=== PATIENT | male | born 1945 | race African-American/Black ===

== ENCOUNTER 2022-05-23 12:54 | Inpatient (IN) | payer MEDICARE, OTHER ==
[~2022-05-23] VITALS: Ht 177.8 cm; Wt 69.9 kg
--- NOTE | 2022-05-23 13:09 | NUR ---
"Plan to admit" per Dr Gasper Healy. ER registration staff Elvin were notified.
--- NOTE | 2022-05-23 13:09 | NUR ---
Chetan comer in EDM - 05/23/22 at 2000 by NISHANT Plan to admit" per Dr Gasper Healy. ER registartion staff Elvin notified
[2022-05-23 13:23] LABS: HEMATOCRIT 36.4 % (36.7-47.1); MEAN CORPUSCULAR HEMOGLOBIN 32.8 uug (23.8-33.4); MEAN CORPUSCULAR VOLUME 96.6 fL (73.0-96.2); PLATELET COUNT (AUTO) 234 K/uL (152-348)
[2022-05-23 13:35] LABS: CARBON DIOXIDE 26 mmol/L (21-32); CHLORIDE 105 mmol/L (98-107); CREATININE 1.3 mg/dL (0.6-1.3); GLUCOSE 140 mg/dL (74-106); POTASSIUM 3.8 mmol/L (3.5-5.1); UREA NITROGEN, BLOOD 14 mg/dL (7-18)
[2022-05-23 13:48] LABS: ALANINE AMINOTRANSFERASE 22 U/L (16-63); ALKALINE PHOSPHATASE 96 U/L (50-136); ASPARTATE AMINOTRANSFERASE 26 U/L (15-37); BILIRUBIN,DIRECT 0.3 mg/dL (0.0-0.2); BILIRUBIN,TOTAL 0.6 mg/dL (0.2-1.0); TOTAL PROTEIN, SERUM 8.2 g/dL (6.4-8.2)
--- NOTE | 2022-05-23 14:13 | NUR ---
Chetan comer in ED - 05/23/22 at 2001 by NISHANT Swabs for COVID antigen & PCR, RSV and influenza virus were colected and handed to lab staff June.
--- NOTE | 2022-05-23 14:13 | NUR ---
Swabs for COVID antigen & PCR, RSV and influenza virus were collected and handed to lab staff June.
[2022-05-23] MEDS ORDERED: AZITHROMYCIN IV 500 MG in IV DEXTROSE 5% 250 ML IV ONE (14:15)
[2022-05-23] MEDS ORDERED: CEFTRIAXONE 1 G in IV DEXTROSE 5% 50 ML IV ONE (14:15)
[2022-05-23] MEDS ORDERED: ASPIRIN 81 MG TAB.CHEW PO ONE (14:30)
[2022-05-23] MEDS ORDERED: IV NORMAL SALINE 1000 ML BAG IV ONE (14:30)
--- NOTE | 2022-05-23 14:32 | NUR ---
Pt and pt do not remember any of Pt's meds and unable to get bottles/list at this time.
[2022-05-23] MEDS ORDERED: AZITHROMYCIN 500MG/ D5W 250ML IVPB **ER PYXIS ONLY IV ONE (14:45)
[2022-05-23] MEDS ORDERED: CEFTRIAXONE /D5W 50ML IVPB **ER PYXIS IV ONE (14:45)
[2022-05-23] MEDS ORDERED: ASPIRIN 81 MG TAB.CHEW ONE (15:15)
--- NOTE | 2022-05-23 16:44 | NUR ---
Patient c/o shortness of breath again, MD notified.
[2022-05-23] MEDS ORDERED: ALBUTEROL SULFATE 2.5 MG/3 ML NEBU ONE (16:50)
[2022-05-23] MEDS ORDERED: IPRATROPIUM BROMIDE 0.5 MG/2.5 ML NEBU ONE (16:51)
--- NOTE | 2022-05-23 16:55 | NUR ---
Nebulization treatment in progress. Resp therapist Taras is at bedside.
[2022-05-23] MEDS ORDERED: ALBUTEROL SULFATE 2.5 MG/3 ML NEBU NEB ONE (17:00)
[2022-05-23] MEDS ORDERED: IPRATROPIUM BROMIDE 0.5 MG/2.5 ML NEBU NEB ONE (17:00)
--- NOTE | 2022-05-23 19:31 | NUR ---
Nursing SBAR given to PEYMAN Wolf, patient is for admission for telemetry vs ICU depending if patient can tolerate nasal cannula instead.
[2022-05-23] MEDS ORDERED: ACETAMINOPHEN 325 MG TABLET PO PRN (20:00)
[2022-05-23] MEDS ORDERED: MORPHINE SULFATE 2 MG/1 ML DISP.SYRIN IV PRN (20:00)
[2022-05-23] MEDS ORDERED: LEVALBUTEROL HCL NEB 0.63 MG/3 ML NEBU NEB PRN (20:30)
[2022-05-23] MEDS: DOCUSATE SODIUM 100 MG CAPSULE PO SCH (21:00)
[2022-05-23] MEDS: ENOXAPARIN SODIUM 60 MG/0.6 ML DISP.SYRIN SQ SCH (21:00)
[2022-05-23] MEDS ORDERED: ENOXAPARIN SODIUM 60 MG/0.6 ML DISP.SYRIN SQ ONE (22:49)
[2022-05-24] MEDS: AMIODARONE HCL IV 450 MG in IV DEXTROSE 5% 250 ML IV PRN (03:23)
[2022-05-24 05:26] LABS: ABG BASE EXCESS -2.3 mmol/L; ABG HCO3 19.9 mmol/L; ABG PCO2 27.7 mmHg (35.0-45.0); ABG PH 7.475 (7.350-7.450); ABG PO2 56.4 mmHg (75.0-100.0); ABG SITE LEFT RADIAL; ABG TOTAL HEMOGLOBIN 13.2 G/dL (13.5-18.0); COHb 0.4 % (0.5-1.5); MetHb 0.2 % (0.0-1.5); O2Hb 91.3 % (94.0-97.0); VENT MODE Nasal Cannula
--- NOTE | 2022-05-24 05:50 | NUR ---
Patient was placed back on BIPAP due to low oxygen and high co2.after been on 2L nasal cannula by his request. continue to monior
[2022-05-24 07:29] LABS: HEMATOCRIT 36.9 % (36.7-47.1); MEAN CORPUSCULAR HEMOGLOBIN 33.3 uug (23.8-33.4); PLATELET COUNT (AUTO) 276 K/uL (152-348)
--- NOTE | 2022-05-24 07:30 | NUR ---
Received the patient from the off-going nurse. Patient A/O X 4, denies pain. Received the patient on the BiPAP, observed with activity intolerance. Patient has Amio gtt infusing to his (RT) hand, site WNL. Patient observed with tachycardia/A-Fib/RVR on the bedside monitor. Patient is admitted to the ICU, stable on the stretcher in the lowest positionc, call bhakta within reach asnd awaiting assigned bed.
[2022-05-24 07:55] LABS: ALANINE AMINOTRANSFERASE 27 U/L (16-63); ALKALINE PHOSPHATASE 104 U/L (50-136); ASPARTATE AMINOTRANSFERASE 28 U/L (15-37); BILIRUBIN,TOTAL 0.8 mg/dL (0.2-1.0); CARBON DIOXIDE 24 mmol/L (21-32); CHLORIDE 104 mmol/L (98-107); CHOLESTEROL 155 mg/dL (<200); CREATININE 1.8 mg/dL (0.6-1.3); GLUCOSE 209 mg/dL (74-106); HDL CHOLESTEROL 45 mg/dL (40-60); MAGNESIUM 1.7 mg/dL (1.8-2.4); PHOSPHOROUS 3.5 mg/dL (2.5-4.9); POTASSIUM 4.5 mmol/L (3.5-5.1); TOTAL PROTEIN, SERUM 8.3 g/dL (6.4-8.2); TRIGLYCERIDES 72 MG/DL (30-150); UREA NITROGEN, BLOOD 18 mg/dL (7-18)
[2022-05-24] MEDS: PANTOPRAZOLE SODIUM 40 MG TABLET.DR PO SCH (08:00)
[2022-05-24] MEDS ORDERED: ENOXAPARIN SODIUM 60 MG/0.6 ML DISP.SYRIN SQ ONE (08:03)
[2022-05-24] MEDS ORDERED: PANTOPRAZOLE SODIUM 40 MG VIAL ONE (08:03)
[2022-05-24 08:05] LABS: THYROID STIMULATING HORMONE 1.372 mIU/mL (0.358-3.740)
[2022-05-24] MEDS: ENOXAPARIN SODIUM 60 MG/0.6 ML DISP.SYRIN SQ SCH (08:12)
--- NOTE | 2022-05-24 08:30 | NUR ---
Patient seen by the RT and BiPAP removed and patient placed on O2 @ 4LPM via N/C. Patient tolerating oxygen delivery method. Call received from the lab for critical repeat Troponin level, call placed to [facility] answering service for Dr. Hoover; admitting MD to inform him of the critical labs. Patient medicated as per standing orders (see eMAR). Patient continues to experience severe activity intolerance. Patient continue on monitoring. Patient is stable on the stretcher in the lowest position, call bhakta within reach and awaiting assigned bed.
[2022-05-24] MEDS ORDERED: FUROSEMIDE 40 MG/4 ML VIAL IV SCH (09:00)
[2022-05-24] MEDS ORDERED: MAGNESIUM OXIDE 400 MG TABLET PO ONE (09:15)
[2022-05-24] MEDS ORDERED: ASPIRIN 81 MG TAB.CHEW ONE (10:29)
[2022-05-24] MEDS ORDERED: MAGNESIUM OXIDE 400 MG TABLET ONE (10:30)
[2022-05-24] MEDS ORDERED: FUROSEMIDE 40 MG/4 ML VIAL ONE (10:30)
[2022-05-24] MEDS: ASPIRIN 81 MG TAB.CHEW PO SCH (10:30)
--- NOTE | 2022-05-24 10:30 | NUR ---
Patient remains the same with no decline in his status. Patient seen and evaluated by the Alarm Field Technician. Patient has new medications ordered and administered(see eMAR). Echo ordered and compleed at the bedside. Patient continues to experience severe activity intolerance. Patient continue on monitoring. Patient is stable on the stretcher in the lowest position, call bhakta within reach and awaiting assigned bed.
[2022-05-24] MEDS ORDERED: ONDANSETRON 4 MG/2 ML VIAL ONE (12:53)
[2022-05-24] MEDS: ONDANSETRON 4 MG/2 ML VIAL IV PRN (12:59)
--- NOTE | 2022-05-24 13:09 | NUR ---
Patient remains the shubham with no decline in his status. Patient seen and evaluated by the Street Light Servicer. Patient C/O nausea, medicated as per PRN order (see eMAR). Patient continues to experience severe activity intolerance. Patient continue on monitoring. Patient is stable on the stretcher in the lowest position, call bhakta within reach and awaiting assigned bed.
[2022-05-24] MEDS ORDERED: CARV12.52 PO (14:19)
[2022-05-24] MEDS ORDERED: SPIR25TA6 PO (14:25)
[2022-05-24] MEDS ORDERED: ALIR150P3 SQ (14:25)
[2022-05-24] MEDS ORDERED: MONT10TA33 PO (14:25)
[2022-05-24] MEDS ORDERED: CLOP75TA15 PO (14:25)
[2022-05-24] MEDS ORDERED: FLUT1BLS6 IH (14:25)
--- NOTE | 2022-05-24 14:33 | NUR ---
Patient remains the same, tolerating oxygen delivery method, continues to experience severe activity intolerance. Patient transported on the threat monitoring analyst, safely via stretcher to and from DC. Patient continue on monitoring. Patient is stable on the stretcher in the lowest position, call bhakta within reach and awaiting assigned bed.
[2022-05-24] MEDS ORDERED: FEBU40TA PO (14:36)
[2022-05-24] MEDS ORDERED: PLEC3TAB2 PO (14:36)
[2022-05-24] MEDS ORDERED: FURO-151 PO (14:36)
[2022-05-24] MEDS ORDERED: MAGN400T8 PO (14:36)
[2022-05-24] MEDS ORDERED: APIX5TAB PO (14:36)
[2022-05-24] MEDS ORDERED: MEGE40TA7 PO (14:36)
[2022-05-24] MEDS ORDERED: DEXL60CA3 PO (14:36)
[2022-05-24] MEDS ORDERED: CEFTRIAXONE /D5W 50ML IVPB **ER PYXIS IV ONE (14:54)
[2022-05-24] MEDS ORDERED: AZITHROMYCIN IV 500 MG in IV DEXTROSE 5% 250 ML IV SCH (15:00)
[2022-05-24] MEDS: CEFTRIAXONE 1 G in IV DEXTROSE 5% 50 ML IV SCH (15:45)
--- NOTE | 2022-05-24 17:00 | NUR ---
Patient remains the same with no decline in his status. #20G angio-cath inserted to (RT) A/C and IVABT X 2 to be infused. Condom cath applied and secured to (RT) thigh, due to activity intolerance to urinate standing up. Patient stable on the stretcher, in the lowest position, call bhakta within reach and awaiting assigned bed.
[2022-05-24] MEDS: DOXYCYCLINE HYCLATE IV 100 MG in IV DEXTROSE 5% 100 ML IV SCH (17:09)
--- NOTE | 2022-05-24 18:24 | NUR ---
received report from ER nurse. patient will be going to [facility].
--- NOTE | 2022-05-24 18:30 | NUR ---
Patient remains the same with no decline in his status, denies pain/discomfort. Patient has an assigned bed, verbal report via the telephone given to Catherine MORLEY, the assigned nurse. Patient transported safely via stretcher on the quality assurance monitor final to his assigned bed. Patient transferred safely onto his assigned bed, left stable with Catherine MORLEY at the bedside. BiPAP is at the bedside.
[2022-05-24 19:13] VITALS: BP 110/81
[2022-05-24] MEDS: FUROSEMIDE 40 MG/4 ML VIAL IV SCH (19:42)
[2022-05-24 20:00] VITALS: BP 110/74
[2022-05-24 21:00] VITALS: BP 124/77
[2022-05-24] MEDS: ATORVASTATIN 40 MG TABLET PO SCH (21:08)
[2022-05-24] MEDS: DOCUSATE SODIUM 100 MG CAPSULE PO SCH (21:08)
[2022-05-24 22:00] VITALS: BP 119/85
[2022-05-24 23:00] VITALS: BP 128/80
[2022-05-25] VITALS (24 sets, daily range): BP systolic 92–140; BP diastolic 51–90
[2022-05-25] MEDS: DOXYCYCLINE HYCLATE IV 100 MG in IV DEXTROSE 5% 100 ML IV SCH ×2 (03:14→14:47)
[2022-05-25] MEDS: AMIODARONE HCL IV 450 MG in IV DEXTROSE 5% 250 ML IV PRN (03:17)
[2022-05-25 05:52] LABS: HEMATOCRIT 37.7 % (36.7-47.1); MEAN CORPUSCULAR HEMOGLOBIN 33.5 uug (23.8-33.4); PLATELET COUNT (AUTO) 243 K/uL (152-348)
[2022-05-25 06:12] LABS: CARBON DIOXIDE 15 mmol/L (21-32); CHLORIDE 99 mmol/L (98-107); CREATININE 2.1 mg/dL (0.6-1.3); GLUCOSE 203 mg/dL (74-106); MAGNESIUM 1.8 mg/dL (1.8-2.4); PHOSPHOROUS 3.9 mg/dL (2.5-4.9); POTASSIUM 4.4 mmol/L (3.5-5.1); UREA NITROGEN, BLOOD 31 mg/dL (7-18)
[2022-05-25] MEDS: PANTOPRAZOLE SODIUM 40 MG TABLET.DR PO SCH (07:15)
[2022-05-25] MEDS: ENOXAPARIN SODIUM 60 MG/0.6 ML DISP.SYRIN SQ SCH (09:46)
[2022-05-25] MEDS: ASPIRIN 81 MG TAB.CHEW PO SCH (09:46)
[2022-05-25] MEDS: FUROSEMIDE 40 MG/4 ML VIAL IV SCH ×2 (09:46→21:27)
[2022-05-25] MEDS ORDERED: METOPROLOL TARTRATE 25 MG TABLET PO SCH (10:00)
[2022-05-25] MEDS: GLUCERNA SHAKE 237 ML CAN PO SCH ×2 (12:00→17:07)
[2022-05-25] MEDS: CEFTRIAXONE 1 G in IV DEXTROSE 5% 50 ML IV SCH (13:58)
[2022-05-25] MEDS: METOPROLOL TARTRATE 25 MG TABLET PO SCH ×2 (15:30→21:29)
[2022-05-25] MEDS: ATORVASTATIN 40 MG TABLET PO SCH (21:27)
[2022-05-25] MEDS: DOCUSATE SODIUM 100 MG CAPSULE PO SCH (21:27)
[2022-05-25] MEDS: QUETIAPINE FUMARATE 25 MG TABLET PO PRN (22:42)
[2022-05-26] VITALS (24 sets, daily range): BP systolic 98–134; BP diastolic 58–85
[2022-05-26] MEDS: DOXYCYCLINE HYCLATE IV 100 MG in IV DEXTROSE 5% 100 ML IV SCH ×2 (03:00→14:26)
[2022-05-26 06:02] LABS: HEMATOCRIT 37.7 % (36.7-47.1); MEAN CORPUSCULAR VOLUME 98.2 fL (73.0-96.2); PLATELET COUNT (AUTO) 241 K/uL (152-348)
[2022-05-26 06:26] LABS: CARBON DIOXIDE 23 mmol/L (21-32); CHLORIDE 102 mmol/L (98-107); CREATININE 2.1 mg/dL (0.6-1.3); GLUCOSE 125 mg/dL (74-106); MAGNESIUM 1.9 mg/dL (1.8-2.4); PHOSPHOROUS 2.3 mg/dL (2.5-4.9); POTASSIUM 3.7 mmol/L (3.5-5.1); UREA NITROGEN, BLOOD 47 mg/dL (7-18)
[2022-05-26] MEDS: PANTOPRAZOLE SODIUM 40 MG TABLET.DR PO SCH (07:06)
--- NOTE | 2022-05-26 07:51 | NUR ---
AT ABOUT 0100 HOURS, PATIENT WAS GROSSLY CONFUSED, REMOVED HIS GOWN AND ALL MEDICAL EQUIPMENT, PULLED OUT HIS NEWLY INSERTED PICC LINE AND STOOD UP TO HIS BEDSIDE COMMODE AND PEED ON THE FLOOR AGAIN. PATIENT WAS REORIENTED, ASSISTED BACK IN BED,CLEANED AND MADE COMFORTABLE. THE WAS ASSOCIATE MARKETING MANAGER WAS CALLED REGARDING PATIENT'S PICC LINE THAT WAS NO LONGER IN POSITION AND PATIENT HAS AN IV ANTIBIOTIC DUE AT 0300 HOURS. THE ASSOCIATE MARKETING MANAGER SAID THAT THERE COULD NOT BE ANY PICC LINE PLACED AT THAT HOUR OF THE NIGHT. PATIENT RESTING WELL IN BED. NO CHANGE IN CONDITION.
[2022-05-26] MEDS: GLUCERNA SHAKE 237 ML CAN PO SCH ×2 (08:00→17:00)
[2022-05-26] MEDS: METOPROLOL TARTRATE 25 MG TABLET PO SCH (08:52)
[2022-05-26] MEDS: ENOXAPARIN SODIUM 60 MG/0.6 ML DISP.SYRIN SQ SCH (08:53)
[2022-05-26] MEDS: ASPIRIN 81 MG TAB.CHEW PO SCH (09:25)
[2022-05-26] MEDS: FUROSEMIDE 40 MG/4 ML VIAL IV SCH (09:25)
[2022-05-26] MEDS: CEFTRIAXONE 1 G in IV DEXTROSE 5% 50 ML IV SCH (13:13)
[2022-05-26] MEDS: QUETIAPINE FUMARATE 25 MG TABLET PO PRN ×2 (15:36→22:11)
--- NOTE | 2022-05-26 15:36 | NUR ---
Called per patient request no answer. Anxious and yelling quetiapine 25mg by mouth offered and accepted
[2022-05-26] MEDS ORDERED: SODIUM PHOSPHATE MM 15 MMOL in IV NORMAL SALINE 250 ML IV ONE (16:00)
[2022-05-26] MEDS ORDERED: AMIODARONE HCL IV 150 MG in IV DEXTROSE 5% 100 ML IV ONE (19:00)
[2022-05-26] MEDS ORDERED: METOPROLOL TARTRATE 25 MG TABLET PO SCH (21:00)
[2022-05-26] MEDS: ATORVASTATIN 40 MG TABLET PO SCH (21:11)
[2022-05-26] MEDS: DOCUSATE SODIUM 100 MG CAPSULE PO SCH (21:11)
[2022-05-26] MEDS: AMIODARONE HCL IV 450 MG in IV DEXTROSE 5% 250 ML IV PRN (22:11)
[2022-05-27] VITALS (22 sets, daily range): BP systolic 96–125; BP diastolic 56–87
[2022-05-27] MEDS: DOXYCYCLINE HYCLATE IV 100 MG in IV DEXTROSE 5% 100 ML IV SCH ×2 (03:21→17:06)
[2022-05-27 05:33] LABS: HEMATOCRIT 36.3 % (36.7-47.1); MEAN CORPUSCULAR HEMOGLOBIN 32.8 uug (23.8-33.4); MEAN CORPUSCULAR VOLUME 97.2 fL (73.0-96.2); PLATELET COUNT (AUTO) 255 K/uL (152-348)
[2022-05-27 06:02] LABS: ALANINE AMINOTRANSFERASE 236 U/L (16-63); ALKALINE PHOSPHATASE 89 U/L (50-136); ASPARTATE AMINOTRANSFERASE 220 U/L (15-37); BILIRUBIN,TOTAL 0.9 mg/dL (0.2-1.0); CARBON DIOXIDE 26 mmol/L (21-32); CREATININE 1.9 mg/dL (0.6-1.3); GLUCOSE 166 mg/dL (74-106); MAGNESIUM 2.1 mg/dL (1.8-2.4); PHOSPHOROUS 2.9 mg/dL (2.5-4.9); TOTAL PROTEIN, SERUM 7.5 g/dL (6.4-8.2); UREA NITROGEN, BLOOD 53 mg/dL (7-18)
[2022-05-27] MEDS: GLUCERNA SHAKE 237 ML CAN PO SCH ×3 (08:00→17:07)
[2022-05-27 08:28] LABS: CHLORIDE 102 mmol/L (98-107); POTASSIUM 3.6 mmol/L (3.5-5.1)
[2022-05-27] MEDS ORDERED: METOPROLOL SUCCINATE XL 25 MG TAB.SR.24H PO SCH (09:00)
[2022-05-27] MEDS: PANTOPRAZOLE SODIUM 40 MG TABLET.DR PO SCH (09:02)
[2022-05-27] MEDS: ASPIRIN 81 MG TAB.CHEW PO SCH (09:02)
[2022-05-27] MEDS: AMIODARONE HCL IV 450 MG in IV DEXTROSE 5% 250 ML IV PRN (09:05)
[2022-05-27] MEDS: APIXABAN 5 MG TABLET PO SCH ×2 (09:24→21:00)
[2022-05-27] MEDS ORDERED: METOPROLOL SUCCINATE XL 50 MG TAB.SR.24H PO SCH (09:30)
[2022-05-27 10:01] LABS: *BILIRUBIN,URIN NEGATIVE (NEGATIVE); *BLOOD, URINE NEGATIVE (NEGATIVE); *CLARITY,URINE CLEAR (CLEAR); *COLOR,URINE YELLOW (YELLOW); *KETONES,URINE NEGATIVE (NEGATIVE); *UROBILINOGEN,URINE 0.2 E.U./dl (NORMAL); LEUKOCYTE ESTERASE ,URINE NEGATIVE (NEGATIVE); NITRITE, URINE NEGATIVE (NEGATIVE); PH,URINE 5.5 (5.0-8.0); UGLUCOSE NEGATIVE (NEGATIVE)
[2022-05-27 10:10] LABS: *AMPHETAMINE, URINE NEGATIVE (NEGATIVE); *CANNABINOID, URINE POSITIVE (NEGATIVE); *COCCAINE, URINE NEGATIVE (NEGATIVE); *OPIATE, URINE NEGATIVE (NEGATIVE); *PHENCYCLIDINE SCREEN,URINE NEGATIVE (NEGATIVE)
[2022-05-27 10:22] LABS: *CREATININE,URINE 118.5 mg/dL (30-125)
[2022-05-27] MEDS: FUROSEMIDE 40 MG TABLET PO SCH (11:18)
[2022-05-27] MEDS: CEFTRIAXONE 1 G in IV DEXTROSE 5% 50 ML IV SCH (15:31)
--- NOTE | 2022-05-27 16:46 | NUR ---
Shift Clinical NOte - Friday05/27/2022 I received patient lying in bed, he is short of breath and wrestless and disagreeable. Pt wants IV out and he wants to go home. 09:00 Pt wants to go home.He verbalizes that he has very little appetitte. He only drank one meal replacement shake. 9:30 Television Equipment Operator at bedside. He speacks to patient who was not fully aware of the extent of his cardiac issues. Pt verbalizes that he smokes and that may have contributed to his phsyical condition. 10:00 Pt transported to Radiology for CT scan. 12:00 Dr. Hoover at bedside to visit patient. 12:00 Marlene Waite called with a new home number [phone]. She states that she may come later. 1400 Daughter Chelsea called to inquire about the patient. Message relayed to pt. " Chelsea said, " love you". I provided an update to Chelsea. Report will be endorsed to security shift manager RN
[2022-05-27] MEDS ORDERED: GUAIFENESIN/DEXTROMETHORPHAN 5 ML UDC PO PRN (18:30)
[2022-05-27] MEDS: ONDANSETRON 4 MG/2 ML VIAL IV PRN ×3 (19:47→22:56)
[2022-05-27] MEDS: DOCUSATE SODIUM 100 MG CAPSULE PO SCH (20:50)
[2022-05-27] MEDS: QUETIAPINE FUMARATE 25 MG TABLET PO PRN (20:51)
[2022-05-27] MEDS: ATORVASTATIN 40 MG TABLET PO SCH (20:51)
[2022-05-28] VITALS (10 sets, daily range): BP systolic 95–127; BP diastolic 62–95
[2022-05-28] MEDS: DOXYCYCLINE HYCLATE IV 100 MG in IV DEXTROSE 5% 100 ML IV SCH ×2 (03:00→14:35)
[2022-05-28 05:35] LABS: HEMATOCRIT 35.4 % (36.7-47.1); MEAN CORPUSCULAR HEMOGLOBIN 33.2 uug (23.8-33.4); MEAN CORPUSCULAR VOLUME 97.1 fL (73.0-96.2); PLATELET COUNT (AUTO) 247 K/uL (152-348)
--- NOTE | 2022-05-28 05:40 | NUR ---
pT RECEIVED LAST NIGHT FROM OUTGOING RN IN BED WITH HOB ELEVATED..NURSING ASSESMENT DONE/PT VITAL SIGN STABLE.TURNED AND REPOSITIONNED PER HOUSE PROTOCOLE.PT MEDICATED FOR DISCONFORM AND INSOMNIA ORDERED.SNACK GIVEN PER PT REQUEST.PT USES THE URINAL.MEDICATED WITH IV ABX ORDERED.PT TURNED AND REPOSITIONNED.REMAINS IN AMIODARONE.NO S/S OF CARDIAC DISTRESS NOTED.
[2022-05-28 05:49] LABS: CARBON DIOXIDE 26 mmol/L (21-32); CHLORIDE 102 mmol/L (98-107); CREATININE 1.7 mg/dL (0.6-1.3); GLUCOSE 158 mg/dL (74-106); MAGNESIUM 2.1 mg/dL (1.8-2.4); PHOSPHOROUS 2.5 mg/dL (2.5-4.9); POTASSIUM 3.4 mmol/L (3.5-5.1); UREA NITROGEN, BLOOD 45 mg/dL (7-18)
[2022-05-28] MEDS: PANTOPRAZOLE SODIUM 40 MG TABLET.DR PO SCH (06:00)
--- NOTE | 2022-05-28 07:55 | NUR ---
Cardiology rounded and will continue the amiodarone gtt continues at 0.5ml/hr and also start the amiodarone po as ordered. Heart rate is 80 to 120's in and out of sinus rhythm and afib. Asymptomatic on room air oxygen saturation is greater than 94% no complaints of shortness of breath. Requested eggs and sausage for breakfast called dietary.
[2022-05-28] MEDS: GLUCERNA SHAKE 237 ML CAN PO SCH ×3 (08:00→16:45)
[2022-05-28] MEDS ORDERED: POTASSIUM CHLORIDE 20 MEQ POWDER PACKET PO ONE (08:30)
[2022-05-28] MEDS: METOPROLOL SUCCINATE XL 50 MG TAB.SR.24H PO SCH (09:30)
[2022-05-28] MEDS: AMIODARONE HCL 200 MG TABLET PO SCH ×2 (09:31→21:33)
[2022-05-28] MEDS: APIXABAN 5 MG TABLET PO SCH ×2 (09:32→21:34)
[2022-05-28] MEDS: FUROSEMIDE 40 MG TABLET PO SCH (09:33)
[2022-05-28] MEDS: ASPIRIN 81 MG TAB.CHEW PO SCH (09:34)
[2022-05-28] MEDS: AMIODARONE HCL IV 450 MG in IV DEXTROSE 5% 250 ML IV PRN ×2 (09:40→20:40)
[2022-05-28] MEDS ORDERED: ALBUTEROL SULFATE 1.25 MG/3 ML NEBU NEB PRN (12:15)
[2022-05-28] MEDS ORDERED: FLUTICASONE/SALMETEROL 250/50 INHALER INH SCH (12:15)
[2022-05-28] MEDS ORDERED: LEVALBUTEROL HCL NEB 0.63 MG/3 ML NEBU NEB PRN (12:30)
[2022-05-28] MEDS: FLUTICASONE/VILANTEROL 1 EACH BLST.W.DEV INH SCH (13:24)
[2022-05-28] MEDS: CEFTRIAXONE 1 G in IV DEXTROSE 5% 50 ML IV SCH (14:36)
--- NOTE | 2022-05-28 16:43 | NUR ---
Prasannaonc in to see patient speaking to via telephone on CT scan findings and lung nodules.
[2022-05-28] MEDS: ONDANSETRON 4 MG/2 ML VIAL IV PRN (16:44)
[2022-05-28] MEDS: QUETIAPINE FUMARATE 25 MG TABLET PO PRN (18:14)
--- NOTE | 2022-05-28 18:35 | NUR ---
Transford to room 308 via bed on tele and 3 liters nasal canula. Remains on amiodarone gtt at 05mg/hr continuous until cardiology stops. Report given to Flaca Bejarano
--- NOTE | 2022-05-28 19:45 | NUR ---
Received patient awake, hob elevate on oxygen 3liters a minute, no sob no chest pain, on Amionadarome drip 20ml per hour, as ordered, no adverse reaction noted, sinus rhythm on tele, BP stable 104/68 hr 80, daughter at bedside, cont to monitor.
--- NOTE | 2022-05-28 20:40 | NUR ---
Patient awake daughter at bedsides, no sob no chest pain, sinus rhythm on tele, hanged Amiodarone iv at 17.267 ml per hour as ordered, tolerate well, BP stable, hr stable, cont to monitor.
[2022-05-28] MEDS ORDERED: MONTELUKAST SODIUM 10 MG TABLET PO SCH (21:00)
[2022-05-28] MEDS: DOCUSATE SODIUM 100 MG CAPSULE PO SCH (21:32)
[2022-05-28] MEDS: ATORVASTATIN 40 MG TABLET PO SCH (21:33)
[2022-05-29] VITALS: BP 106/69
[2022-05-29] MEDS: DOXYCYCLINE HYCLATE IV 100 MG in IV DEXTROSE 5% 100 ML IV SCH (03:23)
[2022-05-29 04:00] VITALS: BP 112/64
[2022-05-29] MEDS: QUETIAPINE FUMARATE 25 MG TABLET PO PRN (06:08)
[2022-05-29] MEDS: PANTOPRAZOLE SODIUM 40 MG TABLET.DR PO SCH (06:08)
[2022-05-29 06:36] LABS: HEMATOCRIT 35.9 % (36.7-47.1); MEAN CORPUSCULAR HEMOGLOBIN 33.6 uug (23.8-33.4); MEAN CORPUSCULAR VOLUME 97.1 fL (73.0-96.2); PLATELET COUNT (AUTO) 259 K/uL (152-348)
[2022-05-29 06:50] LABS: CARBON DIOXIDE 27 mmol/L (21-32); CHLORIDE 101 mmol/L (98-107); GLUCOSE 169 mg/dL (74-106); PHOSPHOROUS 2.6 mg/dL (2.5-4.9); POTASSIUM 4.3 mmol/L (3.5-5.1); UREA NITROGEN, BLOOD 47 mg/dL (7-18)
--- NOTE | 2022-05-29 07:00 | NUR ---
Patient awake with episode of agitation, threatening to go home, patient short of breath, RT gave breathing treatment, kept hob elevated, given seroquel po as ordered. Patient became calm, and no further shortness of breath, cont to monitor.
[2022-05-29] MEDS: GLUCERNA SHAKE 237 ML CAN PO SCH ×2 (08:00→12:00)
[2022-05-29 08:09] VITALS: BP 112/77
[2022-05-29 08:33] VITALS: BP 122/77
[2022-05-29] MEDS ORDERED: APIXABAN 5 MG TABLET PO SCH (09:00)
[2022-05-29] MEDS ORDERED: CLOPIDOGREL 75 MG TABLET PO SCH (09:00)
[2022-05-29] MEDS: AMIODARONE HCL 200 MG TABLET PO SCH (09:30)
[2022-05-29] MEDS: METOPROLOL SUCCINATE XL 50 MG TAB.SR.24H PO SCH (09:30)
[2022-05-29] MEDS: ASPIRIN 81 MG TAB.CHEW PO SCH (09:30)
[2022-05-29] MEDS: FUROSEMIDE 40 MG TABLET PO SCH (09:31)
[2022-05-29] MEDS: APIXABAN 5 MG TABLET PO SCH (09:33)
[2022-05-29] MEDS: FLUTICASONE/VILANTEROL 1 EACH BLST.W.DEV INH SCH (10:54)
[2022-05-29 11:53] VITALS: BP 128/77
--- NOTE | 2022-05-29 12:09 | NUR ---
pt agitated and want to go home already. pt removes his iv lines and refused to wear tele monitor. notified .
--- NOTE | 2022-05-29 12:27 | NUR ---
pt spoke with his family on the phone.
[2022-05-29] MEDS ORDERED: DOXY-326 PO (12:28)
[2022-05-29] MEDS ORDERED: ATOR40TA PO (12:28)
[2022-05-29] MEDS ORDERED: AMIO200T6 PO (12:28)
--- NOTE | 2022-05-29 13:20 | NUR ---
[facility] and family agree with the plan per CM.
[2022-05-29] MEDS: CEFTRIAXONE 1 G in IV DEXTROSE 5% 50 ML IV SCH (14:00)
--- NOTE | 2022-05-29 14:19 | NUR ---
pt refused to go to [facility]. cm spoke with pt. cm called family to speak to the pt. pt still refused to go. pt want to go home. ambulance cancelled. cm will arrange another transpo for pt to go home.
--- NOTE | 2022-05-29 15:23 | NUR ---
pt family arranged a transpo for the pt to go home.
--- NOTE | 2022-05-29 15:41 | NUR ---
pt is discharge. pt vitals wnl. all belongings accounted for. pt family arranged a taxi ride for the pt. pt will to go home.
[2022-05-30] MEDS ORDERED: FUROSEMIDE 20 MG TABLET PO SCH (09:00)
== END 2022-05-29 15:40 | disposition home or self-care (01) | DRG 280 ==
LOC: ER 12:54 → TRANSITION 20:09 → CCU 05-24 18:25 → TELE-TD3 05-28 18:38
PROVIDERS: ADMIT Internal Medicine; ATTEND Nurse Practitioner Acute Care
PROC: 5A09357 Assistance with Respiratory Ventilation, Less than 24 Consecutive Hours, Continuous Positive Airway Pressure (ICD-10-PCS; principal; 2022-05-23)
PROC: 02HV33Z Insertion of Infusion Device into Superior Vena Cava, Percutaneous Approach (ICD-10-PCS; 2022-05-25)
PROC: B548ZZA Ultrasonography of Superior Vena Cava, Guidance (ICD-10-PCS; 2022-05-25)
PROC: 05H633Z Insertion of Infusion Device into Left Subclavian Vein, Percutaneous Approach (ICD-10-PCS; 2022-05-27)
PROC: B547ZZA Ultrasonography of Left Subclavian Vein, Guidance (ICD-10-PCS; 2022-05-27)
DX: I13.0 Hypertensive heart and chronic kidney disease with heart failure and stage 1 through stage 4 chronic kidney disease, or unspecified chronic kidney disease (principal); G92.8 Other toxic encephalopathy; I21.A1 Myocardial infarction type 2; J15.9 Unspecified bacterial pneumonia; J96.01 Acute respiratory failure with hypoxia; N17.0 Acute kidney failure with tubular necrosis; I50.43 Acute on chronic combined systolic (congestive) and diastolic (congestive) heart failure; I48.20 Chronic atrial fibrillation, unspecified; D68.59 Other primary thrombophilia; E44.1 Mild protein-calorie malnutrition; J44.1 Chronic obstructive pulmonary disease with (acute) exacerbation; J44.0 Chronic obstructive pulmonary disease with (acute) lower respiratory infection; J90 Pleural effusion, not elsewhere classified; C34.90 Malignant neoplasm of unspecified part of unspecified bronchus or lung; I48.92 Unspecified atrial flutter; I42.0 Dilated cardiomyopathy; D53.9 Nutritional anemia, unspecified; D72.821 Monocytosis (symptomatic); E88.09 Other disorders of plasma-protein metabolism, not elsewhere classified; F41.9 Anxiety disorder, unspecified; I25.10 Atherosclerotic heart disease of native coronary artery without angina pectoris; Z79.899 Other long term (current) drug therapy; Z86.73 Personal history of transient ischemic attack (TIA), and cerebral infarction without residual deficits; Z79.01 Long term (current) use of anticoagulants; I50.9 Heart failure, unspecified; E88.9 Metabolic disorder, unspecified; Z74.09 Other reduced mobility; E53.8 Deficiency of other specified B group vitamins; R73.9 Hyperglycemia, unspecified; N18.9 Chronic kidney disease, unspecified; R91.8 Other nonspecific abnormal finding of lung field; N28.1 Cyst of kidney, acquired; I48.0 Paroxysmal atrial fibrillation; F17.210 Nicotine dependence, cigarettes, uncomplicated; I77.810 Thoracic aortic ectasia; Z20.822 Contact with and (suspected) exposure to COVID-19
CPT/HCPCS: 36415; 36569; 36600; 71045; 71250; 76770; 82378; 82803; 83605; 83735; 84100; 84300; 84443; 84484; 85025; 87040; 87400; 93005; 93307; 94640; 94660; A4663; C9113; G0378; J0282; J0456; J0696; J1650; J1940; J2270; J2405; J3490; J3590; J7040; J7050; J7614; U0003